=== PATIENT | male | born 1975 | race Caucasian/White ===

== ENCOUNTER 2023-12-02 12:19 | Outpatient (AMB) | payer OTHER, SELFPAY ==
--- NOTE | 2023-12-02 12:29 | HO.NEPHOV_ITS ---
HPI HPI Comments History of Present Illness Details I had the pleasure of seeing Elie in follow-up of his nephrolithiasis and labile hypertension. He currently takes amlodipine 5 mg in the morning and hydrochlorothiazide in the afternoon. He has had history of pre syncope in the past. He is still get orthostatic symptoms at least 2 times a week. He denies nausea, vomiting, diarrhea, shortness of breath, chest pain, palpitation, urinary symptoms, hematuria, flank pain or pedal edema. He has not had any hospitalizations or medication changes recently. All other systems have been reviewed and were negative. [facility] Medical History (Updated 12/02/23 @ 12:52 by Uri Monroe MD) Hypertension Calculus of kidney Surgical History (Updated 12/02/23 @ 12:36 by Abigail Jackson MA) History of tonsillectomy History of repair of ACL Family History (Updated 12/02/23 @ 12:37 by Abigail Jackson MA) Son Cancer Father Hypertension Glaucoma Hyperlipidemia Social History Patient Tobacco Use Status: Never used Tobacco Vital Signs 12/02/23 12:31 Height 5 ft 10 in Weight 188 lb 4 oz BMI 27.0 BP 126/90 H Position Sitting Pulse 84 Pulse Source Pulse Oximeter Pulse Oximetry (%) 99 Oxygen Delivery Method Room Air Physical Exam Vital Signs: Last Vital Signs Pulse 84 12/02/23 12:31 BP 126/90 H 12/02/23 12:31 Pulse Ox 99 12/02/23 12:31 Oxygen Delivery Method Room Air 12/02/23 12:31 BMI result Body Mass Index 27.0 Const General: comfortable and no acute distress Orientation/consciousness: patient oriented x3 HEENT Head: Yes normocephalic Mouth: Normal oral and palatal mucosa present Eyes EOM: EOMs intact bilaterally Neck Neck: Yes supple Resp Auscultation: clear to auscultation bilaterally Cardio Jugular venous distension: no JVD Rate: regular rate GI Palpation (GI): Soft to palpation Auscultation: normal bowel sounds General: Yes no CVA tenderness Back/Spine/Pelvis Back: no CVA tenderness Skin General skin exam: no rashes or lesions noted Neuro General: patient oriented x3 and moves all extremities Extrem General: Yes no pedal edema Assessment & Plan Assessment & Plan (1) Hypertension: Code(s): I10 - Essential (primary) hypertension Qualifiers: Hypertension type: primary hypertension Qualified Code(s): I10 - Essential (primary) hypertension (2) Calculus of kidney: Code(s): N20.0 - Calculus of kidney Plan Elie has history of recurrent nephrolithiasis. His last renal ultrasound had shown some renal stones. He is not known to have any hypercalcemia. He tries to be on a low-sodium diet and maintain good hydration. He has no history of hyperuricemia. He takes amlodipine 5 mg the morning and hydrochlorothiazide 12.5 mg in the afternoon. He continues to have orthostatic symptoms at least 2 times a week. He has history of pre syncope in the past. I asked him to drop his amlodipine to 2.5 mg daily and continue with his current dose of hydrochlorothiazide. He had orthostatic drop in blood pressure during this office visit. I plan to get rid of amlodipine totally if his symptoms do not improve. He has been having dry mouth and dry eyes. His last blood urea and creatinine had been stable. He may benefit from some more investigations to rule out Sjogrens syndrome. He is going to follow-up with me in a few weeks for continued care. Follow-up blood work ordered. All questions answered. Orders: Orders Blood Urea Nitrogen Today I10 - Essential (primary) hypertension, N20.0 - Calculus of kidney Creatinine Today I10 - Essential (primary) hypertension, N20.0 - Calculus of kidney Electrolytes Today I10 - Essential (primary) hypertension, N20.0 - Calculus of kidney Coding Level of Care Code Est Pt Level 3 (46299) Diagnoses Primary hypertension I10 Hypertension type: primary hypertension Calculus of kidney N20.0 Results Reviewed Nephrology Results: No Data to Display
[2023-12-02 12:31] VITALS: BP 126/90; PULSE 84; O2SAT 99; BMI 27.0
== END 2023-12-02 13:07 | disposition home or self-care (01) ==
PROVIDERS: PCP Family Medicine; Visit Provider Internal Medicine Nephrology
DX: I10 Essential (primary) hypertension (principal); N20.0 Calculus of kidney
CPT/HCPCS: 99213

== ENCOUNTER → 2023-12-02 12:19 | Outpatient (BNVA) | payer OTHER, SELFPAY | PROVIDERS: PCP Family Medicine; Visit Provider Internal Medicine Nephrology ==

== ENCOUNTER 2024-01-04 13:35 | Outpatient (AMB) | payer OTHER, SELFPAY ==
--- NOTE | 2024-01-04 13:39 | HO.NEPHOV_ITS ---
HPI HPI Comments History of Present Illness Details I had the pleasure of seeing Elie in follow-up of his nephrolithiasis and labile hypertension. He currently takes amlodipine 5 mg in the morning and hydrochlorothiazide in the afternoon. He has had history of pre syncope in the past. He is still get orthostatic symptoms at least 2 times a week. He denies nausea, vomiting, diarrhea, shortness of breath, chest pain, palpitation, urinary symptoms, hematuria, flank pain or pedal edema. He has not had any hospitalizations or medication changes recently. All other systems have been reviewed and were negative [facility] Medical History (Updated 12/02/23 @ 12:52 by Uri Monroe MD) Hypertension Calculus of kidney Surgical History (Updated 12/02/23 @ 12:36 by Abigail Jackson MA) History of tonsillectomy History of repair of ACL Family History (Updated 12/02/23 @ 12:37 by Abigail Jackson MA) Son Cancer Father Hypertension Glaucoma Hyperlipidemia Social History (Updated 12/02/23 @ 12:37 by Abigail Jackson MA) Patient Tobacco Use Status: Never used Tobacco Vital Signs 01/04/24 13:40 Height 5 ft 10 in Weight 191 lb 2 oz BMI 27.4 BP 120/70 Blood Pressure Location Lt brachial Position Sitting Pulse 76 Pulse Source Pulse Oximeter Pulse Oximetry (%) 99 Oxygen Delivery Method Room Air Physical Exam Const General: comfortable and no acute distress Orientation/consciousness: patient oriented x3 HEENT Head: Yes normocephalic Mouth: Normal oral and palatal mucosa present Eyes EOM: EOMs intact bilaterally Neck Neck: Yes supple Resp Auscultation: clear to auscultation bilaterally Cardio Jugular venous distension: no JVD Rate: regular rate GI Palpation (GI): Soft to palpation Auscultation: normal bowel sounds General: Yes no CVA tenderness Back/Spine/Pelvis Back: no CVA tenderness Skin General skin exam: no rashes or lesions noted Neuro General: patient oriented x3 and moves all extremities Extrem General: Yes no pedal edema Assessment & Plan Assessment & Plan (1) Calculus of kidney: Code(s): N20.0 - Calculus of kidney (2) Hypertension: Code(s): I10 - Essential (primary) hypertension Qualifiers: Hypertension type: primary hypertension Qualified Code(s): I10 - Essential (primary) hypertension Plan Elie has history of recurrent nephrolithiasis. His last renal ultrasound had shown some renal stones. He is not known to have any hypercalcemia. He tries to be on a low-sodium diet and maintain good hydration. He has no history of hyperuricemia. He takes amlodipine 2.5 mg the morning and hydrochlorothiazide 12.5 mg in the afternoon. He has history of pre syncope in the past. He had orthostatic drop in blood pressure during this office visit. I plan to get rid of amlodipine totally if his symptoms do not improve. He has been having dry mouth and dry eyes. His last blood urea and creatinine had been stable. He may benefit from some more investigations to rule out Sjogrens syndrome. His BP is at goal and when stood up it was 110/70. He is going to follow-up with me in a few months for continued care. All questions answered Coding Level of Care Code Est Pt Level 3 (13530) Diagnoses Calculus of kidney N20.0 Primary hypertension I10 Hypertension type: primary hypertension Results Reviewed Nephrology Results: No Data to Display
[2024-01-04 13:40] VITALS: BP 120/70; PULSE 76; O2SAT 99; BMI 27.4
== END 2024-01-04 14:07 | disposition home or self-care (01) ==
PROVIDERS: PCP Family Medicine; Visit Provider Internal Medicine Nephrology
DX: N20.0 Calculus of kidney (principal); I10 Essential (primary) hypertension
CPT/HCPCS: 99213

== ENCOUNTER → 2024-01-04 13:35 | Outpatient (BNVA) | payer OTHER, SELFPAY | PROVIDERS: PCP Family Medicine; Visit Provider Internal Medicine Nephrology ==

== ENCOUNTER 2024-04-04 13:39 | Outpatient (AMB) | payer OTHER, SELFPAY ==
--- NOTE | 2024-04-04 13:52 | HO.NEPHOV ---
Vital Signs 04/04/24 13:53 Height 5 ft 10 in Weight 190 lb 2 oz BMI 27.3 BP 120/80 Blood Pressure Location Lt brachial Position Sitting Pulse 86 Pulse Source Pulse Oximeter Pulse Oximetry (%) 98 Oxygen Delivery Method Room Air Intake Visit Reasons: Calculus of kidney/ 3 MO FU/ Confirmed Head Girls Golf Coach Required: No Accompanied by: Self / Same As Patient Allergies latex Allergy (Unknown, Uncoded 01/04/24 13:42) Unknown HPI Comments Details: I had the pleasure of seeing Elie in follow-up of his nephrolithiasis and labile hypertension. He currently takes amlodipine 5 mg in the morning and hydrochlorothiazide in the afternoon. He has had history of pre syncope in the past. He is still get occasional orthostatic symptoms at least 2 times a week. He denies nausea, vomiting, diarrhea, shortness of breath, chest pain, palpitation, urinary symptoms, hematuria, flank pain or pedal edema. He has not had any hospitalizations or medication changes recently. All other systems have been reviewed and were negative [facility] Medical History (Updated 12/02/23 @ 12:52 by Uri Monroe MD) Hypertension Calculus of kidney Surgical History History of tonsillectomy History of repair of ACL Family History Son Cancer Father Hypertension Glaucoma Hyperlipidemia Social History Patient Tobacco Use Status: Never used Tobacco Physical Exam Vital Signs: Last Vital Signs Pulse 86 04/04/24 13:53 BP 142/92 H 04/04/24 13:53 Pulse Ox 98 04/04/24 13:53 Oxygen Delivery Method Room Air 04/04/24 13:53 BMI result Body Mass Index 27.3 Const General: comfortable and no acute distress Orientation/consciousness: patient oriented x3 HEENT Head: Yes normocephalic Mouth: Normal oral and palatal mucosa present Eyes EOM: EOMs intact bilaterally Neck Neck: Yes supple Resp Auscultation: clear to auscultation bilaterally Cardio Jugular venous distension: no JVD Rate: regular rate GI Palpation (GI): Soft to palpation Auscultation: normal bowel sounds General: Yes no CVA tenderness Back/Spine/Pelvis Back: no CVA tenderness Skin General skin exam: no rashes or lesions noted Neuro General: patient oriented x3 and moves all extremities Extrem General: Yes no pedal edema Results Reviewed Nephrology Results: No Data to Display Assessment & Plan Assessment & Plan (1) Hypertension: Code(s): I10 - Essential (primary) hypertension Category: Medical Qualifiers: Hypertension type: primary hypertension Qualified Code(s): I10 - Essential (primary) hypertension (2) Calculus of kidney: Code(s): N20.0 - Calculus of kidney Category: Medical Plan Elie has history of recurrent nephrolithiasis. His last renal ultrasound had shown some renal stones. He is not known to have any hypercalcemia. He tries to be on a low-sodium diet and maintain good hydration. He has no history of hyperuricemia. He takes amlodipine 2.5 mg the morning and hydrochlorothiazide 12.5 mg in the afternoon. He has history of pre syncope in the past. I plan to a serum cortisol and 24 hour BP monitor if his symptoms doesn't improve. His last blood urea and creatinine had been stable. He is going to follow-up with me in a few months for continued care. All questions answered Orders: Orders Cortisol Random Today I10 - Essential (primary) hypertension, N20.0 - Calculus of kidney Creatinine Today I10 - Essential (primary) hypertension, N20.0 - Calculus of kidney Electrolytes Today I10 - Essential (primary) hypertension, N20.0 - Calculus of kidney Blood Urea Nitrogen Today I10 - Essential (primary) hypertension, N20.0 - Calculus of kidney Medications: Changed From hydrochlorothiazide 12.5 mg PO DAILY To hydrochlorothiazide 12.5 mg PO DAILY 90 days 90 tabs 4RF Coding Level of Care Code Est Pt Level 4 (45621) Diagnoses Primary hypertension I10 Hypertension type: primary hypertension Calculus of kidney N20.0
[2024-04-04 13:53] VITALS: BP 120/80; PULSE 86; O2SAT 98; BMI 27.3
== END 2024-04-04 14:19 | disposition home or self-care (01) ==
PROVIDERS: PCP Family Medicine; Visit Provider Internal Medicine Nephrology
DX: I10 Essential (primary) hypertension (principal); N20.0 Calculus of kidney
CPT/HCPCS: 99214

== ENCOUNTER → 2024-04-04 13:39 | Outpatient (BNVA) | payer OTHER, SELFPAY | PROVIDERS: PCP Family Medicine; Visit Provider Internal Medicine Nephrology ==

== ENCOUNTER 2024-07-14 08:10 | Outpatient (REF) | payer OTHER, SELFPAY ==
[2024-07-14 11:48] LABS: Anion Gap 9 (12-20); Blood Urea Nitrogen 18 mg/dL (9-16); Carbon Dioxide 30 mmol/L (22-29); Chloride 103 mmol/L (96-108); Estimated Glomerular Filt Rate > 60; Sodium 138 mmol/L (135-145)
[2024-07-14 11:58] LABS: Cortisol Random 9.9 ug/dL
== END 2024-07-14 08:11 | disposition home or self-care (01) ==
LOC: HO.WFDLDS 08:10
PROVIDERS: Visit Provider Internal Medicine Nephrology
DX: I10 Essential (primary) hypertension (principal); N20.0 Calculus of kidney
CPT/HCPCS: 36415; 80051; 82533; 82565; 84520

== ENCOUNTER 2024-07-20 13:28 | Outpatient (AMB) | payer OTHER, SELFPAY ==
--- NOTE | 2024-07-20 13:44 | HO.NEPHOV ---
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 He currently takes amlodipine 5 mg in the morning and hydrochlorothiazide in the afternoon. He has had history of pre syncope in the past. He denies nausea, vomiting, diarrhea, shortness of breath, chest pain, palpitation, urinary symptoms, hematuria, flank pain or pedal edema. He has not had any hospitalizations or medication changes recently. All other systems have been reviewed and were negative [facility] Medical History (Updated 12/02/23 @ 12:52 by Uri Monroe MD) Hypertension Calculus of kidney Surgical History History of tonsillectomy History of repair of ACL Family History Son Cancer Father Hypertension Glaucoma Hyperlipidemia Social History Patient Tobacco Use Status: Never used Tobacco Review of Systems Const All systems reviewed & are unremarkable except as noted in HPI and below Physical Exam Vital Signs: Last Vital Signs Pulse 85 07/20/24 13:46 BP 144/90 H 07/20/24 13:46 Pulse Ox 99 07/20/24 13:46 Oxygen Delivery Method Room Air 07/20/24 13:46 BMI result Body Mass Index 26.3 Const General: comfortable and no acute distress Orientation/consciousness: patient oriented x3 HEENT Head: Yes normocephalic Mouth: Normal oral and palatal mucosa present Eyes EOM: EOMs intact bilaterally Neck Neck: Yes supple Resp Auscultation: clear to auscultation bilaterally Cardio Jugular venous distension: no JVD Rate: regular rate GI Palpation (GI): Soft to palpation Auscultation: normal bowel sounds General: Yes no CVA tenderness Back/Spine/Pelvis Back: no CVA tenderness Skin General skin exam: no rashes or lesions noted Neuro General: patient oriented x3 and moves all extremities Extrem General: Yes no pedal edema Results Reviewed Nephrology Results: Sodium 138 mmol/L (135-145) 07/14/24 Potassium 4.0 mmol/L (3.3-5.1) 07/14/24 Chloride 103 mmol/L (96-108) 07/14/24 Carbon Dioxide 30 mmol/L (22-29) H 07/14/24 BUN 18 mg/dL (9-16) H 07/14/24 Creatinine 1.06 mg/dL (0.5-1.4) 07/14/24 Assessment & Plan Assessment & Plan (1) Hypertension: Code(s): I10 - Essential (primary) hypertension Category: Medical Qualifiers: Hypertension type: primary hypertension Qualified Code(s): I10 - Essential (primary) hypertension (2) Calculus of kidney: Code(s): N20.0 - Calculus of kidney Category: Medical Plan Elie has history of recurrent nephrolithiasis. His last renal ultrasound had shown some renal stones. He is not known to have any hypercalcemia. He tries to be on a low-sodium diet and maintain good hydration. He has no history of hyperuricemia. He takes amlodipine 2.5 mg the morning and hydrochlorothiazide 12.5 mg in the afternoon. He has history of pre syncope in the past. His last blood urea and creatinine had been stable. All questions answered Coding Level of Care Code Est Pt Level 4 (67677) Diagnoses Primary hypertension I10 Hypertension type: primary hypertension Calculus of kidney N20.0
[2024-07-20 13:46] VITALS: BP 144/90; PULSE 85; O2SAT 99; BMI 26.3
== END 2024-07-20 14:14 | disposition home or self-care (01) ==
PROVIDERS: PCP Family Medicine; Visit Provider Internal Medicine Nephrology
DX: I10 Essential (primary) hypertension (principal); N20.0 Calculus of kidney
CPT/HCPCS: 99214

== ENCOUNTER → 2024-07-20 13:28 | Outpatient (BNVA) | payer OTHER, SELFPAY | PROVIDERS: PCP Family Medicine; Visit Provider Internal Medicine Nephrology ==

== ENCOUNTER 2025-03-02 09:42 | Outpatient (AMB) | payer OTHER, SELFPAY ==
[2025-03-02 10:14] VITALS: BP 138/82; PULSE 70; O2SAT 100; BMI 26.6
--- NOTE | 2025-03-02 10:14 | HO.NEPHOV_ITS ---
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 He currently takes amlodipine 5 mg in the morning and hydrochlorothiazide in the afternoon. He has had history of pre syncope in the past. He denies nausea, vomiting, diarrhea, shortness of breath, chest pain, palpitation, urinary symptoms, hematuria, flank pain or pedal edema. He has not had any hospitalizations or medication changes recently. He has been having prostatic symptoms. All other systems have been reviewed and were negative [facility] Medical History (Updated 12/02/23 @ 12:52 by Uri Monroe MD) Hypertension Calculus of kidney Surgical History History of tonsillectomy History of repair of ACL Family History Son Cancer Father Hypertension Glaucoma Hyperlipidemia Social History Patient Tobacco Use Status: Never used Tobacco Review of Systems Const All systems reviewed & are unremarkable except as noted in HPI and below Physical Exam Vital Signs: Last Vital Signs Pulse 70 03/02/25 10:14 BP 138/82 03/02/25 10:14 Pulse Ox 100 03/02/25 10:14 Oxygen Delivery Method Room Air 03/02/25 10:14 BMI result Body Mass Index 26.6 Const General: comfortable and no acute distress Orientation/consciousness: patient oriented x3 HEENT Head: Yes normocephalic Mouth: Normal oral and palatal mucosa present Eyes EOM: EOMs intact bilaterally Neck Neck: Yes supple Resp Auscultation: clear to auscultation bilaterally Cardio Jugular venous distension: no JVD Rate: regular rate GI Palpation (GI): Soft to palpation Auscultation: normal bowel sounds General: Yes no CVA tenderness Back/Spine/Pelvis Back: no CVA tenderness Skin General skin exam: no rashes or lesions noted Neuro General: patient oriented x3 and moves all extremities Extrem General: Yes no pedal edema Results Reviewed Nephrology Results: Sodium 138 mmol/L (135-145) 07/14/24 Potassium 4.0 mmol/L (3.3-5.1) 07/14/24 Chloride 103 mmol/L (96-108) 07/14/24 Carbon Dioxide 30 mmol/L (22-29) H 07/14/24 BUN 18 mg/dL (9-16) H 07/14/24 Creatinine 1.06 mg/dL (0.5-1.4) 07/14/24 Assessment & Plan Assessment & Plan (1) Hypertension: Code(s): I10 - Essential (primary) hypertension Category: Medical Qualifiers: Hypertension type: primary hypertension Qualified Code(s): I10 - Essential (primary) hypertension (2) Calculus of kidney: Code(s): N20.0 - Calculus of kidney Category: Medical Plan Elie has history of recurrent nephrolithiasis. His last renal ultrasound had shown some renal stones. He is not known to have any hypercalcemia. He tries to be on a low-sodium diet and maintain good hydration. He has no history of hyperuricemia. He takes amlodipine 2.5 mg the morning and hydrochlorothiazide 12.5 mg in the afternoon. He has history of pre syncope in the past. His last blood urea and creatinine had been stable. He probably needs tamsulosin as well as seeing a Urologist. He needs a baseline PSA. All questions answered Orders: Orders Creatinine Today I10 - Essential (primary) hypertension, N20.0 - Calculus of kidney Blood Urea Nitrogen Today I10 - Essential (primary) hypertension, N20.0 - Calculus of kidney Electrolytes Today I10 - Essential (primary) hypertension, N20.0 - Calculus of kidney Calcium Today I10 - Essential (primary) hypertension, N20.0 - Calculus of kidney Medications: Refilled amlodipine 2.5 mg PO DAILY 90 tabs 4RF hydrochlorothiazide 12.5 mg PO DAILY 90 days 90 tabs 4RF Coding Level of Care Code Est Pt Level 4 (57101) Diagnoses Primary hypertension I10 Hypertension type: primary hypertension Calculus of kidney N20.0
--- OUTSIDE RECORDS SUMMARY | 2025-03-02 10:22 | XMS_ITS | Encounter Summary ---
Author Organization [facility] Address [address] [place] [address] Phone Care Team Providers Care Sales Team Recruiter Name Role Phone Chino Carlson DO Primary Care Provider [phone] Reason for Visit * Reason Comments Med Refill Encounter Details Date Type Department Care Team (Late st Contact Info) Description 02/19/2022 Refill [facility] [address] [place] [address] Uri Monroe MD Social History Tobacco Use Types Packs/Day Years Used Date Smoking Tobacco: Never Smokeless Tobacco: Never Alcohol Use Standard Drinks/Week Comments No 0 (1 standard drink = 0.6 oz pur e alcohol) Sex and Gender Information Value Date Recorded Sex Assigned at Male 04/02/2022 12:03 PM EDT Legal Sex Male 4:49 PM EST Gender Identity Male 04/02/2022 12:03 PM EDT Sexual Orientation Straight 04/02/2022 12 :03 PM EDT documented as of this encounter Plan of Treatment Not on file documented as of this encounter Visit Diagnoses Not on filedocumented in this encounter Care Teams Sales Team Recruiter Relationship Specialty Start Date End Date Chino Carlson DO [address] [place] [address] PCP - General 11/25/20 documented as of this encounter
--- OUTSIDE RECORDS SUMMARY | 2025-03-02 10:23 | XMS_ITS | Encounter Summary ---
Author Organization [facility] Address [address] [place] [address] Phone Care Team Providers Care Serology Teacher Name Role Phone Chino Carlson DO Primary Care Provider [phone] Reason for Visit * Reason Comments Med Refill Encounter Details Date Type Department Care Team (Late st Contact Info) Description 02/02/2022 Refill [facility] [address] [place] [address] Uri Monroe MD Social History [...] on filedocumented in this encounter Care Teams Serology Teacher Relationship Specialty Start Date End Date Chino Carlson DO [address] [place] [address] PCP - General 11/25/20 documented as of this encounter
--- OUTSIDE RECORDS SUMMARY | 2025-03-02 10:23 | XMS_ITS | Clinical Summary ---
Author Organization [facility] Address [address] [facility] [facility] [facility] [address] [place] [address] Phone Care Team Providers Care Agricultural Engineering Technologist Name Role Phone Chino Carlson DO Primary Care Provider [phone] Allergies Active Allergy Reactions Criticality Noted Date Comments Latex 04/02/2022 Medications albuterol HFA (PROVENTIL HFA;VENTOLIN HFA) 108 (90 Base) MCG/ACT inhaler Active amphetamine-dext roamphetamine (ADDERALL) 20 MG tablet Take 1 tablet by mouth 2 (two) times a day Active hydroCHLOROthiaz nora 12.5 MG tablet TAKE 1 TABLET BY MOUTH DAILY 90 tablet 3 05/03/2023 Active amLODIPine (NORVASC) 5 MG tablet Take 5 mg by mouth 1 (one) time each day 03/13/2023 Active rosuvastatin (CRESTOR) 20 MG tablet Take 20 mg by mouth 1 (one) time each day Active Active Problems Problem Noted Date Diagnosed Date Hypertension 05/11/2023 Hyperlipidemia 04/02/2022 Raynaud's phenomenon 04/02/2022 Benign essential hypertension 10/28/2021 Renal stone 10/28/2021 Asthma - currently dormant 1992 Immunizations Immunization Administration Dates Next Due Influenza (IM) Preservative Free 09/12/2015 Influenza, Quadrivalent, Preservative Free 09/06 Pfizer SARS-COV-2 12/27/2020,12/06/2020 Tdap 04/06/2018 Varicella 05/26/2018,04/27/2018 Family History Medical History Relation Comments Heart disease Father Hypertension Father Relation Status Comments Father Mother Alive Social History Tobacco Use Types Packs/Day Years Used Date Smoking Tobacco: Never Smokeless Tobacco: Never Tobacco Cessation:Counseling Given: Not Answered Alcohol Use Standard Drinks/Week Comments No 0 (1 standard drink = 0.6 oz pur e alcohol) Sex and Gender Information Value Date Recorded Sex Assigned at Male 04/02/2022 12:03 PM EDT Legal Sex Male 4:49 PM EST Gender Identity Male 04/02/2022 12:03 PM EDT Sexual Orientation Straight 04/02/2022 12 :03 PM EDT Last Filed Vital Signs Vital Sign Reading Time Taken Comments Blood Pressure 126/90 05/11/2023 4:44 PM EDT Pulse 85 05/11/2023 4:44 PM EDT Temperature - - Respiratory Rate - - Oxygen Saturation - - Inhaled Oxygen Concentration - - Weight 90.2 kg (198 lb 12.8 oz) 05/11/2023 4:44 PM EDT Height 177.8 cm (5' 10 ) 07/02/2020 12: 00 PM EDT Body Mass Index 28.52 07/02/2020 12:00 PM EDT Plan of Treatment Health Maintenance Due Date Last Done Comments Hepatitis B Vaccine (1 of 3 - 19+ 3-dose series) 1993 Pneumococcal Vaccine: 50+ Ye ars (1 of 2 - PCV) 1993 Colorectal Cancer Screening: Annual FOBT 2023 Colorectal Cancer Screening: Colonoscopy 2023 Colorectal Cancer Screening: Sigmoidoscopy 2023 Influenza Vaccine (Season Ended) 2025 09/06/20 21, 09/12/2015 Insurance Diversified Administration ([id number]) Diversified Administration ([id number]) Care Teams Agricultural Engineering Technologist Relationship Specialty Start Date End Date Chino Carlson DO [address] [place] [address] PCP - General 11/25/20
== END 2025-03-02 10:44 | disposition home or self-care (01) ==
LOC: HO.HKA 09:43
PROVIDERS: PCP Family Medicine; Visit Provider Internal Medicine Nephrology
DX: I10 Essential (primary) hypertension (principal); N20.0 Calculus of kidney
CPT/HCPCS: 99214